=== PATIENT | male | born 1935 | race Caucasian/White ===

== ENCOUNTER 2019-06-12 17:20 | Emergency (ER) | payer MEDICARE ==
[~2019-06-12] VITALS: Ht 177.8 cm; Wt 116.0 kg
[~2019-06-12 17:20] MED LIST: ASPI-611 PO; BUDE10.2 INH; GLIP10TA11 PO; LISI10TA4 PO; POTASSIUM CITRATE PO; SIMV20TA PO; SMZ-TMP PO
[2019-06-12 17:30] VITALS: BP 149/63
[2019-06-12] MEDS ORDERED: CEPH250T PO (17:54)
== END 2019-06-12 18:03 | disposition home or self-care (01) ==
LOC: ER 17:20
DX: T23.201A Burn of second degree of right hand, unspecified site, initial encounter (principal); I48.91 Unspecified atrial fibrillation; I25.10 Atherosclerotic heart disease of native coronary artery without angina pectoris; I10 Essential (primary) hypertension; J44.9 Chronic obstructive pulmonary disease, unspecified; E11.9 Type 2 diabetes mellitus without complications; Z87.442 Personal history of urinary calculi; Z95.1 Presence of aortocoronary bypass graft; Z79.82 Long term (current) use of aspirin; Z79.899 Other long term (current) drug therapy; X15.8XXA Contact with other hot household appliances, initial encounter; Y93.89 Activity, other specified; Y92.89 Other specified places as the place of occurrence of the external cause; Y99.8 Other external cause status
CPT/HCPCS: 99283

== ENCOUNTER 2021-02-16 20:30 | Emergency (ER) | payer MEDICARE ==
[~2021-02-16] VITALS: Ht 177.8 cm; Wt 118.2 kg
[~2021-02-16 20:30] MED LIST changes: +AMIO200T61 PO; +APIX5TAB3 PO; -BUDE10.2 INH; +FURO40TA4 PO; -GLIP10TA11 PO; +GLIP5TAB13 PO; -LISI10TA4 PO; +LOP25T PO; +PIOG45TA65 PO; +POTA10TA21 PO; -POTASSIUM CITRATE PO; -SIMV20TA PO; -SMZ-TMP PO
[2021-02-16 20:31] VITALS: BP 179/57
== END 2021-02-16 23:13 | disposition home or self-care (01) ==
LOC: ER 20:31
DX: R23.8 Other skin changes (principal); R22.43 Localized swelling, mass and lump, lower limb, bilateral; E11.9 Type 2 diabetes mellitus without complications; I48.91 Unspecified atrial fibrillation; I25.10 Atherosclerotic heart disease of native coronary artery without angina pectoris; I10 Essential (primary) hypertension; J44.9 Chronic obstructive pulmonary disease, unspecified; Z87.442 Personal history of urinary calculi; Z95.5 Presence of coronary angioplasty implant and graft; Z88.6 Allergy status to analgesic agent; Z79.82 Long term (current) use of aspirin; Z79.899 Other long term (current) drug therapy
CPT/HCPCS: 99284

== ENCOUNTER 2021-03-03 19:05 | Emergency (ER) | payer MEDICARE ==
[~2021-03-03] VITALS: Ht 177.8 cm; Wt 113.6 kg
[2021-03-03] MEDS ORDERED: oxymetazoline 15 ML nasal spray NS ONE (21:35)
[2021-03-03 22:08] VITALS: BP 161/74
== END 2021-03-03 22:09 | disposition home or self-care (01) ==
LOC: ER 19:07
DX: R04.0 Epistaxis (principal); I48.91 Unspecified atrial fibrillation; I25.10 Atherosclerotic heart disease of native coronary artery without angina pectoris; I10 Essential (primary) hypertension; J44.9 Chronic obstructive pulmonary disease, unspecified; E11.9 Type 2 diabetes mellitus without complications; Z87.440 Personal history of urinary (tract) infections; Z88.5 Allergy status to narcotic agent; Z79.899 Other long term (current) drug therapy; Z79.82 Long term (current) use of aspirin
CPT/HCPCS: 99282